=== PATIENT | female | born 1950 | race Caucasian/White ===

== ENCOUNTER 2017-04-30 06:24 | Day surgery (SDC) | payer SELFPAY ==
[~2017-04-30 06:24] MED LIST: Buffered Lidocaine 0.9% SYRIN* 5 ML/SYR SYRINGE INTRADERM ONE; DiMENhydriNATE IV* 50 MG/ML VIAL IV PUSH PRN; Famotidine IV* 10 MG/ML 2 ML (20 mg) IV ONE; Famotidine IV* 10 MG/ML 2 ML (20 mg) ONE; PROCHLORPERAZINE INJ 5 MG/ML 2 ML VIAL IV PRN; fentaNYL* 50 MCG/ML 2 ML VIAL (100 MCG VIAL) IV PRN; oxyCODONE/Acetamin 5/325 MG* TAB PO PRN
[2017-04-30] MEDS ORDERED: Ondansetron INJ* 2 MG/ML VIAL ONE (06:39)
[2017-04-30] MEDS ORDERED: Dexamethasone IV* 4 MG/ML 1 ML (4 MG) ONE ×2 (06:39→06:41)
[2017-04-30] MEDS ORDERED: Artificial Tear OPHTH.OINT* 3.5 GM ONE (07:08)
[2017-04-30] MEDS ORDERED: Bacitracin OPHTH.OINT* 3.5 GM ONE (07:08)
[2017-04-30] MEDS ORDERED: BSS OPTH.SOL* BTL ONE (07:08)
[2017-04-30] MEDS ORDERED: Bacitracin OINTMENT* 0.5% 0.5 oz TUBE ONE (07:09)
[2017-04-30] MEDS ORDERED: Midazolam* 1 MG/ML 2 ML VIAL (2 MG) ONE (07:21)
[2017-04-30] MEDS ORDERED: fentaNYL* 50 MCG/ML 2 ML VIAL (100 MCG VIAL) ONE (07:21)
[2017-04-30] MEDS ORDERED: KETAMINE HCL* 50 MG/ML 10 ML VIAL ONE (07:21)
[2017-04-30] MEDS ORDERED: Lidocaine 1% MPF wEPI 200,000* 30 ML SDV ONE (07:30)
[2017-04-30] MEDS ORDERED: ceFAZolin 2 GM PREMIX (*) 2 GM/50 ML BAG IVPB ONE (07:39)
[2017-04-30] MEDS ORDERED: Phenylephrine IV* 40 MCG/ML 10 ML SYRINGE ONE (08:11)
[2017-04-30] MEDS ORDERED: Propofol* 10 MG/ML 20 ML BTL IV PUSH ONE (08:56)
[2017-04-30] MEDS ORDERED: Lidocaine 2% PF * 5 ML VIAL ONE (08:56)
[2017-04-30] MEDS ORDERED: Flumazenil* 0.1 MG/ML 5 ML MDV ONE (08:57)
[2017-04-30 10:24] VITALS: BP 104/55
[2017-04-30] MEDS ORDERED: Povidone Iodine 5% OPTH* 30 ML BTL ONE (10:31)
== END 2017-04-30 10:15 | disposition home or self-care (01) ==
LOC: OREAST 06:24
PROVIDERS: ATTEND Plastic Surgery
DX: Z41.1 Encounter for cosmetic surgery (principal); H02.835 Dermatochalasis of left lower eyelid; H02.832 Dermatochalasis of right lower eyelid; I08.2 Rheumatic disorders of both aortic and tricuspid valves; K51.90 Ulcerative colitis, unspecified, without complications
CPT/HCPCS: A9270-GY; J0690; J1100; J2001; J2250; J2405; J2704; J3010